=== PATIENT | male | born 2000 | race American Indian/Alaskan Native ===

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

== ENCOUNTER 2019-02-21 16:46 | Emergency (ER) | payer SELFPAY ==
[2019-02-21 16:58] VITALS: BP 146/77
--- NOTE | 2019-02-21 19:42 | Emergency Department Report ---
ED General Adult HPI - General Chief complaint: Urogenital-Male Stated complaint: STD CHECK Time Seen by Provider: 02/21/19 18:16 Source: patient Mode of arrival: Ambulatory Limitations: No Limitations - History of Present Illness Initial comments: 18-year-old male with history of bipolar disorder, hyperthyroidism presents to ED requesting STD check. Patient reports he has been having unprotected oral sex, and would like to be checked for all STDs. Patient denies fever or sore throat. Patient advised to follow-up on an outpatient basis with the health department. The patient then stated that he has a history of hyperthyroidism, currently taking levothyroxine and and sees an assembly line leader at [place]. Patient requesting a thyroid panel to check his levels. Patient states he has an upcoming appointment with his assembly line leader but is unsure of the exact date. Patient advised to follow up on an outpatient basis with his assembly line leader as his vital signs are normal, he is not exhibiting any signs of thyrotoxicosis. Patient then reported that he is having "side effects" from his medications which include palpitations and chest pain. - Related Data Home Medications Medication Instructions Recorded Confirmed Last Taken Methylphenidate HCl [Concerta] 18 mg PO DAILY 12/02/13 09/12/15 01/14/14 risperiDONE [RisperDAL] 1 mg PO QHS 12/02/13 09/12/15 01/14/14 Previous Rx's Medication Instructions Recorded Last Taken Type Methimazole [Tapazole] 10 mg PO Q8H #90 tablet 05/30/15 Unknown Rx Propranolol [Inderal] 10 mg PO BID #60 tablet 05/30/15 Unknown Rx Allergies Allergy/AdvReac Type Severity Reaction Status Date / Time No Known Allergies Allergy Verified 11/17/17 05:48 ED Review of Systems ROS: Stated complaint: STD CHECK Other details as noted in HPI Comment: All other systems reviewed and negative Constitutional: denies: chills, fever ENT: denies: throat pain Cardiovascular: chest pain, palpitations Genitourinary: denies: dysuria ED Past Medical Hx - Past Medical History Previous Medical History?: Yes Hx Hypertension: Yes Hx Psychiatric Treatment: Yes (Bipolar, ADHD) Additional medical history: Hypothyroidism. Tachycardia - Surgical History Past Surgical History?: Yes Additional Surgical History: thyroidectomy-03/15 - Social History Smoking Status: Current Every Day Smoker Substance Use Type: Alcohol, Marijuana - Medications Home Medications: Home Medications Medication Instructions Recorded Confirmed Last Taken Type Methylphenidate HCl [Concerta] 18 mg PO DAILY 12/02/13 09/12/15 01/14/14 History risperiDONE [RisperDAL] 1 mg PO QHS 12/02/13 09/12/15 01/14/14 History Methimazole [Tapazole] 10 mg PO Q8H #90 tablet 05/30/15 09/12/15 Unknown Rx Propranolol [Inderal] 10 mg PO BID #60 tablet 05/30/15 09/12/15 Unknown Rx ED Physical Exam - General Limitations: No Limitations General appearance: alert, in no apparent distress - Head Head exam: Present: atraumatic, normocephalic - Eye Eye exam: Present: normal appearance - ENT ENT exam: Present: mucous membranes moist - Neck Neck exam: Present: normal inspection - Respiratory Respiratory exam: Present: normal lung sounds bilaterally. Absent: respiratory distress - Cardiovascular Cardiovascular Exam: Present: regular rate, normal rhythm - GI/Abdominal GI/Abdominal exam: Absent: distended - Extremities Exam Extremities exam: Present: normal inspection - Neurological Exam Neurological exam: Present: alert, oriented X3 - Psychiatric Psychiatric exam: Present: normal affect, normal mood - Skin Skin exam: Present: warm, dry, intact ED Course Vital Signs 02/21/19 16:54 Temperature 98.9 F Pulse Rate 84 Respiratory 20 Rate Blood Pressure 146/77 O2 Sat by Pulse 99 Oximetry ED Medical Decision Making - Medical Decision Making Pt refused EKG, decided to leave, states he has to be at work. AMA form signed. Critical care attestation.: If time is entered above; I have spent that time in minutes in the direct care of this critically ill patient, excluding procedure time. ED Disposition Clinical Impression: Encounter for assessment of STD exposure, Chest pain Disposition: DC-07 LEFT AGAINST MED ADVICE Is pt being admited?: No Condition: Stable Instructions: Chest Pain (ED) Referrals: PRIMARY CARE, [Primary Care Provider] - 3-5 Days Forms: AMA Form
== END 2019-02-21 19:33 | disposition left against medical advice (07) ==
LOC: ED 16:46
DX: Z20.2 Contact with and (suspected) exposure to infections with a predominantly sexual mode of transmission (principal); R07.89 Other chest pain; F31.9 Bipolar disorder, unspecified; I10 Essential (primary) hypertension; F17.200 Nicotine dependence, unspecified, uncomplicated; E89.0 Postprocedural hypothyroidism
CPT/HCPCS: 99282

== ENCOUNTER 2021-06-29 07:43 | Emergency (ER) | payer SELFPAY ==
[2021-06-29 07:51] VITALS: BP 143/96
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
--- NOTE | 2021-06-29 08:29 | Emergency Department Report ---
ED General Adult HPI - General Chief complaint: Anxiety Stated complaint: anxiety Time Seen by Provider: 06/29/21 07:56 Source: patient, EMS Mode of arrival: Ambulatory Limitations: No Limitations - History of Present Illness Initial comments: Patient is 21 years old male with unknown past psychiatric history. Patient presented to the ER via EMS complaining of generalized muscle cramps. She also stated that she has sutures on her hands and need to be removed. Patient stated that is applied 2 weeks ago. Patient stated that she is on olanzapine. Patient denied any suicidal homicidal ideation. No visual hallucination. No auditory hallucination. Patient does have loose association with no clinical evidence of acute psychosis. Severity scale (0 -10): 5 - Related Data Home Medications Medication Instructions Recorded Confirmed Last Taken Methylphenidate HCl [Concerta] 18 mg PO DAILY 12/02/13 09/12/15 01/14/14 risperiDONE [RisperDAL] 1 mg PO QHS 12/02/13 09/12/15 01/14/14 Previous Rx's Medication Instructions Recorded Last Taken Type methIMAzole [Tapazole] 10 mg PO Q8H #90 tablet 05/30/15 Unknown Rx propranoloL [Inderal] 10 mg PO BID #60 tablet 05/30/15 Unknown Rx Fluticasone [Flonase] 1 spray NS QDAY #1 bottle 09/23/18 Unknown Rx Levothyroxine Sodium [Synthroid] 137 mcg PO QAM #14 tablet 09/23/18 Unknown Rx Sea Salt/Citr/Cit AC/Bicarb/Av 1 each NS DAILY #7 powd.pack 09/23/18 Unknown Rx [Nasalcare Rinse Kit] Ketorolac [Toradol] 10 mg PO Q6H PRN #14 tablet 09/24/20 Unknown Rx methOCARBAMOL [Robaxin TAB] 750 mg PO Q8H #15 tablet 09/24/[address] [DepaKOTE DR] 250 mg PO BID 30 Days #60 tablet 05/06/21 Unknown Rx FLUoxetine [PROzac] 10 mg PO QDAY 30 Days #30 tablet 05/06/21 Unknown Rx OLANzapine [ZyPREXA] 5 mg PO QHS 30 Days #30 tablet 05/06/21 Unknown Rx Cyclobenzaprine HCl [Flexeril 5 MG 5 mg PO TID PRN #21 tab 06/29/21 Unknown Rx TAB] Allergies Allergy/AdvReac Type Severity Reaction Status Date / Time No Known Allergies Allergy Verified 06/29/21 14:10 ED Review of Systems ROS: Stated complaint: anxiety Other details as noted in HPI Comment: All other systems reviewed and negative Constitutional: denies: chills, fever Respiratory: cough, shortness of breath. denies: SOB with exertion, wheezing Cardiovascular: denies: chest pain, palpitations Gastrointestinal: denies: abdominal pain, nausea, vomiting Musculoskeletal: myalgia. denies: back pain Neurological: denies: headache, weakness Psychiatric: denies: anxiety, depression, auditory hallucinations, visual hallucinations, homicidal thoughts, suicidal thoughts ED Past Medical Hx - Past Medical History Previous Medical History?: Yes Additional medical history: thyroid. Transgender - Surgical History Additional Surgical History: thyroid - Social History Smoking Status: Never Smoker Substance Use Type: None - Medications Home Medications: Home Medications Medication Instructions Recorded Confirmed Last Taken Type Methylphenidate HCl [Concerta] 18 mg PO DAILY 12/02/13 09/12/15 01/14/14 History risperiDONE [RisperDAL] 1 mg PO QHS 12/02/13 09/12/15 01/14/14 History methIMAzole [Tapazole] 10 mg PO Q8H #90 tablet 05/30/15 09/12/15 Unknown Rx propranoloL [Inderal] 10 mg PO BID #60 tablet 05/30/15 09/12/15 Unknown Rx Fluticasone [Flonase] 1 spray NS QDAY #1 bottle 09/23/18 Unknown Rx Levothyroxine Sodium [Synthroid] 137 mcg PO QAM #14 tablet 09/23/18 Unknown Rx Sea Salt/Citr/Cit AC/Bicarb/Av 1 each NS DAILY #7 powd.pack 09/23/18 Unknown Rx [Nasalcare Rinse Kit] Ketorolac [Toradol] 10 mg PO Q6H PRN #14 tablet 09/24/20 Unknown Rx methOCARBAMOL [Robaxin TAB] 750 mg PO Q8H #15 tablet 09/24/[address] [DepaKOTE DR] 250 mg PO BID 30 Days #60 tablet 05/06/21 Unknown Rx FLUoxetine [PROzac] 10 mg PO QDAY 30 Days #30 tablet 05/06/21 Unknown Rx OLANzapine [ZyPREXA] 5 mg PO QHS 30 Days #30 tablet 05/06/21 Unknown Rx Cyclobenzaprine HCl [Flexeril 5 MG 5 mg PO TID PRN #21 tab 06/29/21 Unknown Rx TAB] ED Physical Exam - General Limitations: No Limitations General appearance: alert, in no apparent distress - Head Head exam: Present: atraumatic, normocephalic, normal inspection - Eye Eye exam: Present: normal appearance - ENT ENT exam: Present: normal exam, normal orophraynx, mucous membranes moist - Neck Neck exam: Present: normal inspection, full ROM. Absent: tenderness, meningismus - Respiratory Respiratory exam: Present: normal lung sounds bilaterally - Cardiovascular Cardiovascular Exam: Present: tachycardia - GI/Abdominal GI/Abdominal exam: Present: soft, normal bowel sounds. Absent: distended, tenderness, guarding, rebound, rigid, organomegaly, mass, bruit, pulsatile mass, hernia - Extremities Exam Extremities exam: Present: normal inspection, full ROM, normal capillary refill. Absent: tenderness - Back Exam Back exam: Present: normal inspection, full ROM. Absent: CVA tenderness (R), CVA tenderness (L) - Neurological Exam Neurological exam: Present: alert, oriented X3, CN II-XII intact, normal gait, reflexes normal. Absent: motor sensory deficit - Psychiatric Psychiatric exam: Present: normal mood. Absent: manic, homicidal ideation, suicidal ideation - Skin Skin exam: Present: warm, intact, normal color ED Course Vital Signs 06/29/21 07:48 Temperature 99.4 F Pulse Rate 103 H Respiratory 16 Rate Blood Pressure 143/96 [Left] O2 Sat by Pulse 99 Oximetry ED Medical Decision Making - Lab Data Result diagrams: 06/29/21 09:11 06/29/21 09:11 - Medical Decision Making Patient is 21 years old male with unknown past psychiatric history. Patient presented to the ER via EMS complaining of generalized muscle cramps. She also stated that she has sutures on her hands and need to be removed. Patient stated that is applied 2 weeks ago. Patient stated that she is on olanzapine. Patient denied any suicidal homicidal ideation. No visual hallucination. No auditory hallucination. Patient does have loose association with no clinical evidence of acute psychosis. Patient remained stable in the ER with stable vital sign. Stitches removed. Labs reviewed and is unremarkable. Patient given prescription for Naprosyn and advised to follow-up with her primary care physician in the next 2 to 3 days and to return to the ER if she develop any new symptoms. Critical care attestation.: If time is entered above; I have spent that time in minutes in the direct care of this critically ill patient, excluding procedure time. ED Disposition Clinical Impression: Muscle cramp, Encounter for removal of sutures, Upper respiratory infection Disposition: HOME / SELF CARE / HOMELESS Is pt being admited?: No Condition: Stable Instructions: Muscle Cramps and Spasms, [id number] Prescriptions: Cyclobenzaprine HCl [Flexeril 5 MG TAB] 5 mg PO TID PRN #21 tab PRN Reason: Muscle Spasm Referrals: DEEPAK KEE MD [Primary Care Provider] - 3-5 Days
[2021-06-29 10:01] LABS: Basophils % (Auto) 0.7 % (0.0-1.8); Eosinophils # (Auto) 0.1 K/mm3 (0.0-0.4); Eosinophils % (Auto) 1.1 % (0.0-4.3); Hematocrit 32.4 % (35.5-45.6); Hemoglobin 10.4 gm/dl (11.8-15.2); Lymphocytes # (Auto) 1.5 K/mm3 (1.2-5.4); Lymphocytes % (Auto) 28.2 % (13.4-35.0); Mean Corpuscular HGB Conc 32 % (32-34); Mean Corpuscular Volume 74 fl (84-94); Monocytes # (Auto) 0.5 K/mm3 (0.0-0.8); Monocytes % (Auto) 9.2 % (0.0-7.3); Platelet Count 350 K/mm3 (140-440); Red Blood Count 4.41 M/mm3 (3.65-5.03); Red Cell Distribution Width 16.7 % (13.2-15.2)
[2021-06-29 10:14] LABS: BUN/Creatinine Ratio 25; Blood Urea Nitrogen 20 mg/dL (9-20); Calcium 9.3 mg/dL (8.4-10.2); Hemolysis Index 1
[2021-06-29 11:36] LABS: RBC,Urine < 1.0 /HPF (0.0-6.0); WBC,Urine < 1.0 /HPF (0.0-6.0)
[2021-06-29 11:37] LABS: Amphetamine Screen,Urine Negative; Benzodiazepines Screen,Urine Negative; Cannabinoid Screen,Urine Negative; Cocaine Screen,Urine Negative; Methadone Screen,Urine Negative; Opiate Screen,Urine Negative
[2021-06-29 11:46] LABS: Color,Urine Straw (Yellow)
[2021-06-29 11:47] LABS: Bilirubin,Urine Negative (Negative); Blood,Urine Negative (Negative); PH,Urine 6.5 (5.0-7.0)
== END 2021-06-29 13:00 | disposition home or self-care (01) ==
LOC: EDSEX → MERGE 07:43 → ED 07:43
DX: R25.2 Cramp and spasm (principal); Z48.02 Encounter for removal of sutures; J06.9 Acute upper respiratory infection, unspecified; Z98.890 Other specified postprocedural states; Z79.899 Other long term (current) drug therapy
CPT/HCPCS: 36415; 80048; 80307; 80320; 81001; 85025; 99283; 99284; G0480

== ENCOUNTER 2021-07-01 20:15 | Emergency (ER) | payer SELFPAY ==
[2021-07-01 20:22] VITALS: BP 122/68
== END 2021-07-01 20:40 | disposition left against medical advice (07) ==
LOC: EDSEX → ED 20:15
DX: R07.9 Chest pain, unspecified (principal); Z53.21 Procedure and treatment not carried out due to patient leaving prior to being seen by health care provider

== ENCOUNTER 2021-09-11 20:17 | Emergency (ER) | payer SELFPAY ==
[2021-09-11 20:46] VITALS: BP 136/89
--- NOTE | 2021-09-12 05:31 | Emergency Department Report ---
ED General Adult HPI - General Chief complaint: Abdominal Pain Stated complaint: ABDOMINAL PAIN/COUGH Source: EMS Mode of arrival: Ambulatory Limitations: No Limitations - History of Present Illness Initial comments: Patient is a 21-year-old male with no past medical history presents to the ED with complaint of acute onset persistent dry cough for 1 week. Patient states that he has been taking [id number] medications with no relief. Patient denies dizziness, syncope, nausea and vomiting, chest pain, fever, chills, abdominal pain, sore throat, headache, hemoptysis, diarrhea, dysuria, urine frequency and urgency.. -: Sudden, week(s) (1) Location: chest Radiation: non-radiation Severity scale (0 -10): 2 Quality: dull Consistency: intermittent Improves with: none Worsens with: none Associated Symptoms: denies other symptoms, cough. denies: confusion, chest pain, diaphoresis, fever/chills, headaches, loss of appetite, malaise, nausea/vomiting, seizure, shortness of breath, weakness Treatments Prior to Arrival: none - Related Data Home Medications Medication Instructions Recorded Confirmed Last Taken Methylphenidate HCl [Concerta] 18 mg PO DAILY 12/02/13 09/12/15 01/14/14 risperiDONE [RisperDAL] 1 mg PO QHS 12/02/13 09/12/15 01/14/14 Previous Rx's Medication Instructions Recorded Last Taken Type methIMAzole [Tapazole] 10 mg PO Q8H #90 tablet 05/30/15 Unknown Rx propranoloL [Inderal] 10 mg PO BID #60 tablet 05/30/15 Unknown Rx Fluticasone [Flonase] 1 spray NS QDAY #1 bottle 09/23/18 Unknown Rx Levothyroxine Sodium [Synthroid] 137 mcg PO QAM #14 tablet 09/23/18 Unknown Rx Sea Salt/Citr/Cit AC/Bicarb/Av 1 each NS DAILY #7 powd.pack 09/23/18 Unknown Rx [Nasalcare Rinse Kit] Ketorolac [Toradol] 10 mg PO Q6H PRN #14 tablet 09/24/20 Unknown Rx methOCARBAMOL [Robaxin TAB] 750 mg PO Q8H #15 tablet 09/24/[address] [DepErendiraTE DR] 250 mg PO BID 30 Days #60 tablet 05/06/21 Unknown Rx FLUoxetine [PROzac] 10 mg PO QDAY 30 Days #30 tablet 05/06/21 Unknown Rx OLANzapine [ZyPREXA] 5 mg PO QHS 30 Days #30 tablet 05/06/21 Unknown Rx Cyclobenzaprine HCl [Flexeril 5 MG 5 mg PO TID PRN #21 tab 06/29/21 Unknown Rx TAB] Brompheniramine/Pseudoephed/Dm 5 ml PO Q12H #118 ml 09/12/21 Unknown Rx [Bromfed Dm Cough Syrup] Cetirizine HCl [Zyrtec 10mg tab] 10 mg PO DAILY #20 tab 09/12/21 Unknown Rx Allergies Allergy/AdvReac Type Severity Reaction Status Date / Time No Known Allergies Allergy Verified 06/29/21 14:10 ED Review of Systems ROS: Stated complaint: ABDOMINAL PAIN/COUGH Other details as noted in HPI Constitutional: denies: chills, fever Eyes: denies: eye pain, eye discharge, vision change ENT: congestion. denies: ear pain, throat pain Respiratory: cough. denies: shortness of breath, wheezing Cardiovascular: denies: chest pain, palpitations Endocrine: no symptoms reported Gastrointestinal: denies: abdominal pain, nausea, vomiting, diarrhea Genitourinary: denies: urgency, dysuria Musculoskeletal: denies: back pain, joint swelling, arthralgia Skin: denies: rash, lesions Neurological: denies: headache, weakness, paresthesias Psychiatric: denies: anxiety, depression Hematological/Lymphatic: denies: easy bleeding, easy bruising ED Past Medical Hx - Past Medical History Previous Medical History?: Yes Hx Hypertension: Yes Hx Psychiatric Treatment: Yes (Bipolar, ADHD) Additional medical history: Hypothyroidism. Tachycardia - Surgical History Past Surgical History?: Yes Additional Surgical History: thyroidectomy-03/15 - Social History Smoking Status: Unknown if ever smoked - Medications Home Medications: Home Medications Medication Instructions Recorded Confirmed Last Taken Type Methylphenidate HCl [Concerta] 18 mg PO DAILY 12/02/13 09/12/15 01/14/14 History risperiDONE [RisperDAL] 1 mg PO QHS 12/02/13 09/12/15 01/14/14 History methIMAzole [Tapazole] 10 mg PO Q8H #90 tablet 05/30/15 09/12/15 Unknown Rx propranoloL [Inderal] 10 mg PO BID #60 tablet 05/30/15 09/12/15 Unknown Rx Fluticasone [Flonase] 1 spray NS QDAY #1 bottle 09/23/18 Unknown Rx Levothyroxine Sodium [Synthroid] 137 mcg PO QAM #14 tablet 09/23/18 Unknown Rx Sea Salt/Citr/Cit AC/Bicarb/Av 1 each NS DAILY #7 powd.pack 09/23/18 Unknown Rx [Nasalcare Rinse Kit] Ketorolac [Toradol] 10 mg PO Q6H PRN #14 tablet 09/24/20 Unknown Rx methOCARBAMOL [Robaxin TAB] 750 mg PO Q8H #15 tablet 09/24/[address] [DepaKOTE DR] 250 mg PO BID 30 Days #60 tablet 05/06/21 Unknown Rx FLUoxetine [PROzac] 10 mg PO QDAY 30 Days #30 tablet 05/06/21 Unknown Rx OLANzapine [ZyPREXA] 5 mg PO QHS 30 Days #30 tablet 05/06/21 Unknown Rx Cyclobenzaprine HCl [Flexeril 5 MG 5 mg PO TID PRN #21 tab 06/29/21 Unknown Rx TAB] Brompheniramine/Pseudoephed/Dm 5 ml PO Q12H #118 ml 09/12/21 Unknown Rx [Bromfed Dm Cough Syrup] Cetirizine HCl [Zyrtec 10mg tab] 10 mg PO DAILY #20 tab 09/12/21 Unknown Rx ED Physical Exam - General Limitations: No Limitations General appearance: alert, in no apparent distress - Head Head exam: Present: atraumatic, normocephalic, normal inspection - Eye Eye exam: Present: normal appearance, PERRL, EOMI - ENT ENT exam: Present: normal exam, normal orophraynx, mucous membranes moist, TM's normal bilaterally, normal external ear exam - Neck Neck exam: Present: normal inspection, full ROM - Respiratory Respiratory exam: Present: normal lung sounds bilaterally. Absent: respiratory distress, wheezes, chest wall tenderness, accessory muscle use, prolonged expiratory - Cardiovascular Cardiovascular Exam: Present: normal rhythm, tachycardia, normal heart sounds. Absent: systolic murmur, diastolic murmur, rubs, gallop - GI/Abdominal GI/Abdominal exam: Present: soft, normal bowel sounds. Absent: tenderness, guarding, rebound, hyperactive bowel sounds - Extremities Exam Extremities exam: Present: normal inspection, full ROM, normal capillary refill. Absent: tenderness, pedal edema, joint swelling, calf tenderness - Back Exam Back exam: Present: normal inspection, full ROM. Absent: tenderness, CVA tenderness (R), CVA tenderness (L), muscle spasm, paraspinal tenderness - Neurological Exam Neurological exam: Present: alert, oriented X3, CN II-XII intact, normal gait, reflexes normal - Psychiatric Psychiatric exam: Present: normal affect, normal mood - Skin Skin exam: Present: warm, dry, intact, normal color. Absent: rash ED Course Vital Signs 09/11/21 20:43 Temperature 98.1 F Pulse Rate 116 H Respiratory 16 Rate Blood Pressure 136/89 O2 Sat by Pulse 98 Oximetry ED Medical Decision Making - Medical Decision Making This is a 21-year-old male with no past medical history presents to the ED with complaint of acute onset persistent dry cough for 1 week. Patient states that he has been taking [id number] medications with no relief. In the ED, patient is alert and oriented x3 and is not in any distress. Based on the history and physical exam findings, the patient was discharged home on medications and advised to follow-up with his primary care physician in 7 to 10 days for reevaluation. Return to the ED immediately if symptoms get worse. - Differential Diagnosis URI; rhinitis; bronchitis; bronchiolitis Critical care attestation.: If time is entered above; I have spent that time in minutes in the direct care of this critically ill patient, excluding procedure time. ED Disposition Clinical Impression: Acute bronchitis and bronchiolitis Allergic rhinitis Qualifiers: Allergic rhinitis trigger: pollen Allergic rhinitis seasonality: unspecified Qualified Code(s): J30.1 - Allergic rhinitis due to pollen Disposition: HOME / SELF CARE / HOMELESS Is pt being admited?: No Does the pt Need Aspirin: No Condition: Stable Instructions: Acute Bronchitis (ED), Cough, Adult, [id number], Allergic Rhinitis, Adult, [id number], Acute Bronchitis, Adult, [id number] Additional Instructions: Take medication with food, drink plenty of fluids and follow-up with your primary care physician in 7 to 10 days for reevaluation. Return to the ED immediately if symptoms get worse. Prescriptions: Brompheniramine/Pseudoephed/Dm [Bromfed Dm Cough Syrup] 5 ml PO Q12H #118 ml Cetirizine HCl [Zyrtec 10mg tab] 10 mg PO DAILY #20 tab Referrals: [facility] [Provider Group] - 3-5 Days Time of Disposition: 05:32 Print Language: ROMANIAN
== END 2021-09-12 06:23 | disposition home or self-care (01) ==
LOC: EDSEX → ED 20:17
DX: J21.9 Acute bronchiolitis, unspecified (principal); J00 Acute nasopharyngitis [common cold]; I10 Essential (primary) hypertension; F31.9 Bipolar disorder, unspecified; E03.9 Hypothyroidism, unspecified; Z98.890 Other specified postprocedural states; Z79.899 Other long term (current) drug therapy
CPT/HCPCS: 99283

== ENCOUNTER 2021-09-23 16:40 | Emergency (ER) | payer SELFPAY ==
[2021-09-23 16:59] VITALS: BP 142/84
== END 2021-09-23 17:30 | disposition left against medical advice (07) ==
LOC: ED 16:40
DX: R00.1 Bradycardia, unspecified (principal); Z53.21 Procedure and treatment not carried out due to patient leaving prior to being seen by health care provider
CPT/HCPCS: 93005